=== PATIENT | male | born 1990 | race Caucasian/White ===

== ENCOUNTER 2020-08-17 09:34 | Emergency (ER) | payer OTHER ==
[~2020-08-17] VITALS: Ht 175.3 cm; Wt 72.6 kg
[2020-08-17 09:34] VITALS: BP 118/76
[2020-08-17] MEDS ORDERED: ACETAMINOPHEN ES 500 MG TABLET ONE (09:57)
[2020-08-17] MEDS ORDERED: ACETAMINOPHEN ES 500 MG TABLET PO ONE (10:00)
== END 2020-08-17 11:50 | disposition home or self-care (01) ==
LOC: ER 09:37
DX: M53.3 Sacrococcygeal disorders, not elsewhere classified (principal); Z98.890 Other specified postprocedural states; W18.39XA Other fall on same level, initial encounter; Y93.89 Activity, other specified; Y92.89 Other specified places as the place of occurrence of the external cause; Y99.8 Other external cause status
CPT/HCPCS: 72220-TC